=== PATIENT | female | born 1965 | race Caucasian/White ===

== ENCOUNTER 2023-01-19 10:14 | Emergency (ER) | payer OTHER ==
[~2023-01-19] VITALS: Ht 157.5 cm; Wt 80.0 kg
[2023-01-19] MEDS ORDERED: LISI-892 PO (10:18)
[2023-01-19] MEDS ORDERED: LEVO25TA9 PO (10:18)
[2023-01-19] MEDS ORDERED: METF-1211 PO (10:18)
[2023-01-19] MEDS ORDERED: BENA5TAB48 PO (10:18)
[2023-01-19 10:20] VITALS: TEMP 98
[2023-01-19] MEDS ORDERED: IBUP-1554 PO (12:46)
[2023-01-19 13:01] VITALS: BP 135/85; PULSE 80; RESP 16
== END 2023-01-19 13:02 | disposition home or self-care (01) ==
LOC: EMS 10:14
DX: S00.03XA Contusion of scalp, initial encounter (principal); S80.01XA Contusion of right knee, initial encounter; E11.9 Type 2 diabetes mellitus without complications; I10 Essential (primary) hypertension; E03.9 Hypothyroidism, unspecified; Z90.49 Acquired absence of other specified parts of digestive tract; X58.XXXA Exposure to other specified factors, initial encounter; Y93.89 Activity, other specified; Y92.89 Other specified places as the place of occurrence of the external cause; Y99.8 Other external cause status
CPT/HCPCS: 70450; 72125; 82962; 99284